=== PATIENT | female | born 1965 | race American Indian/Alaskan Native ===

== ENCOUNTER 2017-11-18 09:42 | Emergency (ER) | payer BC ==
--- NOTE | 2017-11-18 11:38 | Emergency Department Report ---
Blank Doc - Documentation Documentation: 52-year-old female with past medical history of gastric bypass was brought in for generalized pain for 3 days. 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 Patient says she started taking some Aleve at home which did help at times. Patient denies any nausea vomiting chest pain shortness of breath. Patient denies any calf pain bilaterally. Patient under no acute distress. Pt is relaxing in bed. P: labs,pain control
[2017-11-18] MEDS ORDERED: NACL 0.9% 1000 ML 1,000 ML IV ONE (11:40)
[2017-11-18 12:07] LABS: Basophils % (Auto) 0.4 % (0.0-1.8); Hematocrit 28.3 % (30.3-42.9); Hemoglobin 8.8 gm/dl (10.1-14.3); Lymphocytes # (Auto) 1.4 K/mm3 (1.2-5.4); Lymphocytes % (Auto) 10.9 % (13.4-35.0); Mean Corpuscular HGB Conc 31 % (30-34); Monocytes # (Auto) 0.7 K/mm3 (0.0-0.8); Monocytes % (Auto) 5.5 % (0.0-7.3); Platelet Count 303 K/mm3 (140-440)
[2017-11-18 12:08] LABS: Mean Corpuscular Hemoglobin 22 pg (28-32); Mean Corpuscular Volume 69 fl (79-97); Red Cell Distribution Width 21.9 % (13.2-15.2)
[2017-11-18 12:24] LABS: Alanine Aminotransferase 11 units/L (7-56); Albumin 3.9 g/dL (3.9-5); BUN/Creatinine Ratio 13; Blood Urea Nitrogen 10 mg/dL (7-17); Calcium 8.9 mg/dL (8.4-10.2); Hemolysis Index 1
[2017-11-18] MEDS ORDERED: TORADOL IV ONE (12:25)
--- NOTE | 2017-11-18 14:36 | XRay Report ---
FINAL REPORT EXAM: XR CHEST 1V AP HISTORY: generalized pain COMPARISON: None. TECHNIQUE: Single frontal view of the chest FINDINGS: The cardiomediastinal silhouette is normal in appearance. The lungs are clear without focal consolidation. There is no pleural effusion or pneumothorax. There is no acute soft tissue or osseous abnormality. IMPRESSION: No acute cardiopulmonary disease.
[2017-11-18 14:46] LABS: Bacteria,Urine 4+ /HPF (Negative); Bilirubin,Urine NEG (Negative); Blood,Urine SM (Negative); Color,Urine Yellow (Yellow); Protein,Urine <15 mg/dL mg/dL (Negative); Urobilinogen,Urine < 2.0 mg/dL (<2.0)
[2017-11-18] MEDS ORDERED: ROCEPHIN IM ONE (14:52)
[2017-11-18] MEDS ORDERED: XYLOCAINE 1% MPF 5 mL INFILTRATI ONE (14:52)
--- NOTE | 2017-11-18 14:57 | Emergency Department Report ---
ED General Adult HPI - General Chief complaint: Pain General Stated complaint: FATIGUE Time Seen by Provider: 11/18/17 11:24 Source: patient Mode of arrival: Wheelchair Limitations: No Limitations - History of Present Illness Initial comments: 52-year-old female presents with generalized weakness, body aches, and dizziness that started yesterday. Past medical history of gastric bypass. 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 Patient says she started taking some Aleve at home which did help at times. Patient denies any nausea, vomiting, chest pain, shortness of breath, and calf pain bilaterally. -: days(s) (3 days ago) Severity scale (0 -10): 3 Quality: aching Consistency: intermittent Improves with: none Worsens with: none Associated Symptoms: weakness Treatments Prior to Arrival: NSAID - Related Data Previous Rx's Medication Instructions Recorded Last Taken Type Sulfamethoxazole/Trimethoprim 1 each PO BID 3 Days #6 tablet 11/18/17 Unknown Rx [Bactrim DS TAB] Allergies Allergy/AdvReac Type Severity Reaction Status Date / Time codeine AdvReac Dizziness Verified 11/18/17 09:44 ED Review of Systems ROS: Stated complaint: FATIGUE Other details as noted in HPI Constitutional: weakness. denies: chills, fever Respiratory: denies: cough, shortness of breath, wheezing Cardiovascular: denies: chest pain, palpitations Gastrointestinal: denies: abdominal pain, nausea, vomiting, diarrhea Musculoskeletal: myalgia (generalized body aches). denies: back pain, joint swelling, arthralgia Neurological: denies: headache, weakness, numbness, paresthesias Psychiatric: denies: anxiety, depression ED Past Medical Hx - Past Medical History Previous Medical History?: No - Surgical History Past Surgical History?: Yes Additional Surgical History: gastric bypass, C/S - Social History Smoking Status: Never Smoker Substance Use Type: None - Medications Home Medications: Home Medications Medication Instructions Recorded Confirmed Last Taken Type Sulfamethoxazole/Trimethoprim 1 each PO BID 3 Days #6 tablet 11/18/17 Unknown Rx [Bactrim DS TAB] ED Physical Exam - General Limitations: No Limitations General appearance: alert, in no apparent distress - Respiratory Respiratory exam: Present: normal lung sounds bilaterally. Absent: respiratory distress - Cardiovascular Cardiovascular Exam: Present: regular rate, normal rhythm, normal heart sounds. Absent: systolic murmur, diastolic murmur, rubs, gallop - GI/Abdominal GI/Abdominal exam: Present: soft, normal bowel sounds. Absent: organomegaly, mass - Extremities Exam Extremities exam: Present: normal inspection, full ROM, normal capillary refill. Absent: pedal edema, joint swelling, calf tenderness - Neurological Exam Neurological exam: Present: alert, oriented X3, normal gait - Psychiatric Psychiatric exam: Present: normal affect, normal mood ED Course Vital Signs 11/18/17 11/18/17 09:44 13:23 Temperature 99.2 F Pulse Rate 92 H Respiratory 20 20 Rate Blood Pressure 121/69 O2 Sat by Pulse 100 Oximetry ED Medical Decision Making - Lab Data Result diagrams: 11/18/17 11:42 11/18/17 11:42 - Radiology Data Radiology results: report reviewed Chest x-ray: No acute cardiopulmonary findings. - Medical Decision Making 52-year-old female presents with generalized body aches, weakness, and dizziness for the past 3 days. Patient has a history of anemia and gastric bypass. Patient was examined by me and Dr. Boggs. She is in no acute distress. Vitals stable. Obtain EKG, CBC, CMP, troponin, and chest x-ray. WBCs elevated, mild anemia, chest x-ray read by radiologist in no acute cardiopulmonary findings. UA small amount of blood, nitrates and elevated WBCs. Patient given Toradol 15 mg IV, rocephin 250 mg IM, and normal saline 1 L bolus in the ER. Start Bactrim DS for acute cystitis. Discharged home stable. Follow-up with primary care provider in 2-3 days. Critical care attestation.: If time is entered above; I have spent that time in minutes in the direct care of this critically ill patient, excluding procedure time. ED Disposition Clinical Impression: Myalgia Acute cystitis Qualifiers: Hematuria presence: with hematuria Qualified Code(s): N30.01 - Acute cystitis with hematuria Disposition: TO HOME OR SELFCARE Is pt being admited?: No Does the pt Need Aspirin: No Condition: Stable Instructions: Urinary Tract Infection in Women (ED), Weakness (ED) Additional Instructions: Increase fluid intake daily to 1 L per day. Complete antibiotics as prescribed. Follow-up with primary care provider in 2-3 days. Prescriptions: Sulfamethoxazole/Trimethoprim [Bactrim DS TAB] 1 each PO BID 3 Days #6 tablet Referrals: [facility] [Outside] - 3-5 Days [facility] [Outside] - 3-5 Days [facility] [Outside] - 3-5 Days Time of Disposition: 15:03 Print Language: ROMANSH
[2017-11-18 15:26] VITALS: BP 144/72
== END 2017-11-18 15:25 | disposition home or self-care (01) ==
LOC: ED 09:42
DX: N30.01 Acute cystitis with hematuria (principal); M79.1 Myalgia; D64.9 Anemia, unspecified; Z98.84 Bariatric surgery status; Z88.5 Allergy status to narcotic agent
CPT/HCPCS: 36415; 71045; 80053; 81001; 82550; 83880; 84484; 85025; 86140; 93005; 93010; 96361; 96372; 96374; 99284; J0696; J1885; J7030